=== PATIENT | male | born 1950 | race Caucasian/White ===

== ENCOUNTER 2016-09-17 08:05 | Outpatient (CLI) | payer OTHER | END 2016-09-17 23:00 | LOC: LAB SRH 08:05 | DX: Z51.81 Encounter for therapeutic drug level monitoring (principal); Z79.01 Long term (current) use of anticoagulants | CPT/HCPCS: 90074; 94060 ==

== ENCOUNTER 2016-10-15 08:06 | Outpatient (CLI) | payer OTHER | END 2016-10-15 23:00 | LOC: LAB SRH 08:06 | DX: Z51.81 Encounter for therapeutic drug level monitoring (principal); Z79.01 Long term (current) use of anticoagulants | CPT/HCPCS: 90074; 94060 ==

== ENCOUNTER 2016-11-26 08:43 | Outpatient (CLI) | payer OTHER | END 2016-11-26 23:00 | LOC: LAB SRH 08:43 | DX: Z12.5 Encounter for screening for malignant neoplasm of prostate (principal); E78.5 Hyperlipidemia, unspecified; I10 Essential (primary) hypertension | CPT/HCPCS: 90074; 90100; 91046; 91286; 92690; 93140; 94060 ==

== ENCOUNTER → 2017-01-28 | Outpatient (CLI) | payer OTHER | LOC: LAB SRH 07:49 | DX: Z51.81 Encounter for therapeutic drug level monitoring (principal) | CPT/HCPCS: 90074; 94060; 95059 ==

== ENCOUNTER 2017-03-08 08:14 | Outpatient (CLI) | payer OTHER | END 2017-03-08 23:00 | LOC: LAB SRH 08:14 | DX: Z51.81 Encounter for therapeutic drug level monitoring (principal); Z79.01 Long term (current) use of anticoagulants | CPT/HCPCS: 90074; 94060 ==